=== PATIENT | male | born 1950 | race Caucasian/White ===

== ENCOUNTER → 2016-07-15 | Outpatient (CLI) | payer OTHER ==
[~2016-07-15] MED LIST: ACET-1311 PO; CIPR-255 PO; CLC100 PO; DTR5 PO; IBUP-1050 PO; OXYC7.5T62 PO
== END | disposition home or self-care (01) ==
LOC: C.PATHSPEC 17:54
PROVIDERS: ATTEND Urology
DX: R97.20 Elevated prostate specific antigen [PSA] (principal)

== ENCOUNTER → 2016-07-30 | Outpatient (CLI) | payer OTHER ==
--- NOTE | 2016-07-30 14:51 | DIAGNOSTIC IMAGING REPORT ---
BONE SCAN WHOLE BODY CLINICAL HISTORY: Prostate carcinoma COMPARISON STUDY: No previous studies for comparison. FINDINGS: The patient was injected with 25.1 mCi of technetium 99m MDP. Three-hour delayed whole body images were acquired. There are foci of increased activity within the lower lumbar spine and sacrum, a distribution most consistent with postsurgical change. There is a focus of increased activity within the left wrist at the level the first carpal metacarpal joint. This is likely arthritic. There are no foci of increased activity viewed as suspicious for skeletal metastasis. IMPRESSION: No bone scan evidence of skeletal metastasis Electronically signed by: Amado Lomas M.D. 07/30/2016 2:50 PM Dictated Date/Time: 07/30/2016 2:49 PM
== END | disposition home or self-care (01) ==
LOC: C.NUCL 10:54
PROVIDERS: ATTEND Urology
DX: C61 Malignant neoplasm of prostate (principal)

== ENCOUNTER 2017-01-07 08:00 | Inpatient (IN) | payer OTHER, MEDICARE ==
[2016-12-15 14:38] VITALS: BMI 28.0
--- NOTE | 2016-12-15 15:04 | PAT Medication Instructions ---
Service Date Dec 15, 2016. Current Home Medication List Acetaminophen (Tylenol), 650 MG PO Q4 PRN for Pain Ibuprofen (Advil), 400 MG PO Q6 PRN for Pain Medication Instructions For Your Scheduled Surgery - Check with surgeon for instructions Ibuprofen (Advil), 400 MG PO Q6 PRN for Pain - Take the following medications the morning of surgery with a sip of water: Acetaminophen (Tylenol), 650 MG PO Q4 PRN for Pain (if needed) - Take the following medications as scheduled the night before surgery: Acetaminophen (Tylenol), 650 MG PO Q4 PRN for Pain (if needed) If you have any questions please call us at [phone] or [phone] or [phone]
--- NOTE | 2016-12-15 15:50 | DIAGNOSTIC IMAGING REPORT ---
CHEST PREADMISSION(PA/LAT) CLINICAL HISTORY: PAT COMPARISON STUDY: No previous studies for comparison. FINDINGS: The bones soft tissues and hemidiaphragms are normal. The cardiomediastinal silhouette is normal. The lungs are clear. The pulmonary vasculature is normal. IMPRESSION: Negative chest. The above report was generated using voice recognition software. It may contain grammatical, syntax or spelling errors. Electronically signed by: Miguel Mcclure M.D. 12/15/2016 3:49 PM Dictated Date/Time: 12/15/2016 3:48 PM
[2016-12-15 16:03] LABS: BASO % 0.4 %; BASO ABS # 0.02 K/uL (0-0.2); COMPLETE YES; EOS % 1.2 %; HEMATOCRIT 42.1 % (42-52); IG% 0.2 %; LYMPH % 33.6 %; LYMPH ABS # 1.72 K/uL (1.2-3.4); MEAN CELL VOLUME 88.8 fL (80-100); MEAN CORPUSCULAR HEMOGLOBIN 31.9 pg (25-34); MEAN CORPUSCULAR HGB CONC 35.9 g/dl (32-36); MEAN PLATELET VOLUME 9.5 fL (7.4-10.4); MONO % 7.8 %; NEUT % 56.8 %; PLATELET COUNT 207 K/uL (130-400); RED BLOOD COUNT 4.74 M/uL (4.7-6.1); URINE APPEARANCE CLEAR (CLEAR); URINE BILIRUBIN NEG (NEG); URINE COLOR YELLOW; URINE NITRITE NEG (NEG); URINE SPECIFIC GRAVITY 1.025 (1.000-1.030); UROBILINOGEN NEG (NEG); WHITE BLOOD COUNT 5.12 K/uL (4.8-10.8)
[2016-12-15 16:04] LABS: BUN/CREATININE RATIO 17.4 (10-20); CALCIUM 8.8 mg/dl (8.5-10.1); CREATININE 1.2 mg/dl (0.60-1.40); POTASSIUM 3.9 mmol/L (3.5-5.1)
[2016-12-15 16:11] LABS: MANUAL MICROSCOPIC REQUIRED? NO; REVIEW REQ? NO
[~2017-01-07] VITALS: Ht 170.2 cm; Wt 82.9 kg
[2017-01-07] VITALS (10 sets, daily range): BP systolic 110–152; BP diastolic 56–102; PULSE 54–74; TEMP 36.4–37.1; O2SAT 93–98; Ht 170.2 cm; Wt 82.9 kg
[~2017-01-07 08:00] MED LIST changes: +ACETAMINOPHEN 1000 MG/100 ML IV IV SCH; +CEFAZOLIN IV SCH; -CIPR-255 PO; -CLC100 PO; +DEXTROSE IV SCH; -DTR5 PO; +HEPARIN SOD 5000 UNIT/0.5 ML CARP SQ SCH; +LACTATED RINGER'S 1000ML 1,000 ML IV SCH; -OXYC7.5T62 PO
[2017-01-07] MEDS ORDERED: ONDANSETRON INJ 2 MG/ML 2 ML VIAL IV PRN ×2 (08:45→13:45)
[2017-01-07] MEDS ORDERED: EpHEDrine SULFATE INJ 50 MG/ML AMP IV PRN (08:45)
[2017-01-07] MEDS ORDERED: ATROPINE SULFATE 0.1 MG/ML 5ML SYR IV PRN (08:45)
[2017-01-07] MEDS ORDERED: MoRPHine SULFATE 10 MG/ML CARP/VIAL IV PRN (08:45)
[2017-01-07] MEDS ORDERED: PROPOFOL IV EMULSION 10 MG/ML 20 ML VIAL IV ONE (09:19)
[2017-01-07] MEDS ORDERED: LIDOCAINE HCL 2% 2 ML VIAL (20MG/ML) ONE (09:19)
[2017-01-07] MEDS ORDERED: MIDAZOLAM HCL 1 MG/ML 2ML VIAL ONE (09:19)
[2017-01-07] MEDS ORDERED: DEXAMETHASONE SOD INJ 4 MG/ML VIAL ONE (09:19)
[2017-01-07] MEDS ORDERED: ROCURONIUM BROMIDE 10 MG/ML 5 ML VIAL ONE (09:19)
[2017-01-07] MEDS ORDERED: GLYCOPYRROLATE INJ 0.2 MG/ML VIAL ONE (09:19)
[2017-01-07] MEDS ORDERED: NEOSTIGMINE METHYLSULFATE 5 MG/5 ML SYR ONE (09:19)
[2017-01-07] MEDS ORDERED: FENTANYL CITRATE INJ 50 MCG/1 ML 2 ML VIAL ONE (09:19)
[2017-01-07] MEDS ORDERED: ONDANSETRON INJ 2 MG/ML 2 ML VIAL ONE ×2 (09:19→13:14)
--- NOTE | 2017-01-07 10:09 | History & Physical Bridge Note ---
H&P Re-Evaluation Bridge Note: I have examined the patient, reviewed the History & Physical and in the interval since the performance of the History & Physical I have noted the following changes of clinical significance: No changes noted
[2017-01-07] MEDS ORDERED: BUPIVACAINE 0.5 % 5 MG/1 ML MPF 30ML VIAL ONE (10:17)
[2017-01-07] MEDS ORDERED: METHYLENE BLUE 0.5% 10 ML VIAL ONE (10:17)
[2017-01-07] MEDS ORDERED: HYDROmorphone INJ 2 MG/ML SYR/VIAL ONE (11:09)
[2017-01-07] MEDS ORDERED: HydrALAZINE HCL 20 MG/ML VIAL ONE (11:34)
[2017-01-07] MEDS ORDERED: CEFAZOLIN SOD 1 GM VIAL ONE (11:38)
[2017-01-07] MEDS ORDERED: FLOSEAL HEMOSTATIC MATRIX 10ML TOP ONE (12:18)
[2017-01-07] MEDS ORDERED: SURGICEL ABSORB HEMOSTAT 2IN X 14IN TOP ONE (13:13)
[2017-01-07] MEDS ORDERED: OXYBUTYNIN CHLORIDE 5 MG TAB PO PRN (13:45)
[2017-01-07] MEDS ORDERED: HYDROmorphone INJ 1 MG/ML SYR IV PRN (13:45)
[2017-01-07] MEDS ORDERED: OXYCODONE/ACETAMINOPHEN 7.5-325 TAB PO PRN (13:45)
[2017-01-07] MEDS: FENTANYL CITRATE INJ 50 MCG/1 ML 2 ML VIAL IV PRN ×2 (13:48→13:58)
[2017-01-07 14:24] LABS: HEMATOCRIT 40.5 % (42-52); MEAN CELL VOLUME 90.2 fL (80-100); MEAN CORPUSCULAR HEMOGLOBIN 31.6 pg (25-34); MEAN PLATELET VOLUME 9.3 fL (7.4-10.4); PLATELET COUNT 197 K/uL (130-400); RED BLOOD COUNT 4.49 M/uL (4.7-6.1); WHITE BLOOD COUNT 10.23 K/uL (4.8-10.8)
--- NOTE | 2017-01-07 14:25 | Anesthesiology Progress Note ---
Anesthesia Post Op Note Date & Time Jan 07, 2017 at 14:25 Vital Signs Pain Intensity: 2 Vital Signs Past 12 Hours Date Time Temp Pulse Resp B/P (MAP) Pulse Ox O2 Delivery O2 Flow Rate FiO2 01/07/17 14:15 67 14 01/07/17 14:15 67 14 97 01/07/17 14:11 131/70 01/07/17 14:10 63 14 97 01/07/17 14:10 64 7 01/07/17 14:06 107/63 01/07/17 14:05 68 10 95 01/07/17 14:05 69 10 01/07/17 14:01 111/61 01/07/17 14:00 66 11 98 01/07/17 14:00 67 11 01/07/17 13:56 104/63 01/07/17 13:55 74 7 01/07/17 13:55 74 7 99 01/07/17 13:52 106/65 01/07/17 13:50 74 9 01/07/17 13:50 74 9 99 01/07/17 13:46 125/81 01/07/17 13:45 76 12 01/07/17 13:45 76 12 98 01/07/17 13:43 109/71 01/07/17 13:40 75 16 96 01/07/17 13:40 75 16 01/07/17 13:40 36.3 81 14 109/71 97 Mask 7 01/07/17 08:20 69 16 152/102 (119) 94 Room Air Notes Mental Status: alert / awake / arousable, participated in evaluation Pt Amnestic to Procedure: Yes Nausea / Vomiting: adequately controlled Pain: adequately controlled Airway Patency, RR, SpO2: stable & adequate BP & HR: stable & adequate Hydration State: stable & adequate Anesthetic Complications: no major complications apparent
[2017-01-07 14:43] LABS: BUN/CREATININE RATIO 10.8 (10-20); CALCIUM 8.4 mg/dl (8.5-10.1); CREATININE 1.2 mg/dl (0.60-1.40); POTASSIUM 3.8 mmol/L (3.5-5.1)
--- NOTE | 2017-01-07 14:46 | [facility] Post Operative Brief Note ---
Immediate Operative Summary Operative Date Jan 07, 2017. Pre-Operative Diagnosis cT1c Shannon 3+4 Prostate cancer Post-Operative Diagnosis Same Procedure(s) Performed Robotic Assisted Laparoscopic Radical Retropubic Prostatectomy, Bilateral Nerve Sparing Dissection with Insertion of Suprapubic Catheter Surgeon Dr Itzel Weathers Tenterer Surgeon(s) Mildred RITCHIE Estimated Blood Loss 100 ML Findings Watertight anastomosis, SPT in good location, excellent nerve sparing dissection on both sides. Specimens A. Diana-prostatic fat B. prostate and seminal vesicles Drains 18 fr avila 10 cc H2O, 16 Rutner SPT 5 cc H2O, #10 JAVAN to bulb suction Anesthesia GAET + local Complication(s) None Disposition Recovery Room / PACU
[2017-01-07 14:49] LABS: MEAN CORPUSCULAR HGB CONC 35.1 g/dl (32-36)
--- NOTE | 2017-01-07 14:57 | [facility] Operative Report ---
Operative Report Operative Date Jan 07, 2017. Pre-Operative Diagnosis cT1c [place] 3+4 Prostate cancer Post-Operative Diagnosis Same Procedure(s) Performed Robotic Assisted Laparoscopic Radical Retropubic Prostatectomy, Bilateral Nerve Sparing Dissection with Insertion of Suprapubic Catheter Surgeon Dr Itzel Weathers Truck Rental Clerk Surgeon(s) Mildred RITCHIE Estimated Blood Loss 100 ML Findings Watertight anastomosis, good SPT location, excellent nerve sparing dissection bilaterally Specimens A. Diana-prostatic fat B. prostate and seminal vesicles Drains 18 fr avila 10 cc H2O, 16 Rutner SPT 5 cc H2O, #10 JAVAN to bulb suction Anesthesia GAET + local Complication(s) None Disposition Recovery Room / PACU Indications 66-year-old male found to have Shannon 3+4 prostate cancer in a single core at the left apex after prostate biopsy for a PSA of 5.3. He has chosen robotically prostatectomy manage his disease. Subcutaneous heparin and SCDs were used for DVT prophylaxis and intravenous Ancef was provided for antibiotic coverage. Please see SCDs for further details. Patient wishes to have a suprapubic tube placed for bladder drainage after surgery. Due to his low volume disease and low risk PSA lymph node dissection was not planned. Description of Procedure Patient was properly identified and brought into the operative suite after identification of appropriate consent of the chart. General anesthesia with endotracheal intubation was initiated and patient was prepped and draped in the standard fashion for this procedure. Full timeout procedure was followed. All port sites were anesthetized prior to incision with local anesthesia. 12 mm supraumbilical port was made and abdomen was entered under direct visualization using a 0 laparoscope and a 12 mm visual obturator. Abdomen was surveyed and noted to have normal intra-abdominal anatomy with no significant variations. Ports were placed for a fourth arm robotic template including 2 left-sided 7 mm robotic ports, 1 right-sided 7 mm robotic port and a 5 and 12 mm assistant store manager operations port. Completion was placed in Trendelenburg and robot was brought in and docked. A 0 lens was used to drop the bladder down to the level of the pubic bone. Prostate was defatted and this was sent for pathologic analysis. Endopelvic fascia was sharply using cautery and blunt dissection was carried out to the level of the apex of the prostate. Dorsal venous complex was skeletonized and then controlled using an 0 Vicryl suture on a CT1 needle. Nerve sparing dissection was initiated at this time. 30 down lens was then placed and bladder neck was placed on traction using the fourth arm. Bladder neck was skeletonized down to the level of the Avila catheter and then divided. Avila catheter was used for anterior traction on the prostate gland. Posterior bladder neck was dropped and seminal vesicles and vas deferens were identified within the midline, circumscribed and divided. To assist with mobilization of the prostate the bladder and prostatic pedicles were skeletonized and divided after controlling them with Weck clips. Nerve sparing dissection was carried out to the level of the apex of the prostate on both sides. After the seminal vesicles were dissected free these were placed in the fourth arm for anterior traction. Denonvillier's fascia was divided sharply using cold scissors and the rectum was dropped in the midline up to the level of the apex of the prostate. Hemostasis obtained as necessary using judicious cautery. After this was complete the prostate was placed on traction Avila catheter was replaced via the urethra. Dorsal venous complex was divided and urethra was skeletonized. Apical dissection was completed and then the urethra was divided. Rectourethralis fibers were also divided in prostate was brought up into the abdomen were was placed within an Endo Catch bag for retrieval at the end of the case. Attention was turned to the pelvis were good hemostasis was appreciated and obtained as necessary. FloSeal tissue seal was placed within the confines of the pelvis for additional hemostasis. Prior to placing FloSeal, rectum was insufflated under saline irrigation noted to be free of injury. An excellent aperture to the bladder neck was noted. Using a double- armed V lock suture a circumferential running anastomosis was performed between the bladder neck and the urethra. Prior to completion of closure a silicone Avila catheter was visualized entering the bladder. Closure was completed and the anastomosis was tested with greater than 150 mL of sterile irrigant and noted to be watertight. The remainder of the FloSeal tissue seal was placed within the pelvis. A small suprapubic incision was made and a 16 [place] Rutner catheter was entered into the bladder under direct visualization with 5 mL of sterile water in the balloon and noted to be draining clear urine. Robotic fourth arm was removed and a #10 JAVAN drain was brought in via the fourth arm port. This was placed within the confines of the pelvis while avoiding placing it directly over the anastomosis. Robotic instruments were removed and the camera was brought in via the assistant store manager operations port. String to the Endo Catch bag was brought up through the supraumbilical incision which was then enlarged sufficiently to allow for easy passage of the specimen bag. Fascia at the level of the supraumbilical incision was closed using an 0 Vicryl on a UR 5 needle. Suprapubic tube and JAVAN drain were secured using 2-0 silk suture. Skin was closed at the remaining incisions using 4-0 Monocryl and Dermabond dressing. Excess carbon dioxide gas had been removed from the abdomen prior to completion of closure. JAAVN was placed to bulb suction and catheters to gravity drainage. Anesthesia was reversed patient's transient recovery room in stable condition. Patient will be admitted to the floor for standard postoperative management. I attest to the content of the Intraoperative Record and any orders documented therein. Any exceptions are noted below.
[2017-01-07] MEDS: KETOROLAC TROMETHAMINE 15 MG/ML VIAL IV PRN (15:21)
[2017-01-07] MEDS: LACTATED RINGER'S 1000ML 1,000 ML IV SCH ×2 (15:22→22:26)
[2017-01-07 15:48] LABS: PROTHROMBIN TIME (PATIENT) 10.8 SECONDS (9.0-12.0)
[2017-01-07] MEDS: CEFAZOLIN IV 2,000 MG in DEXTROSE 5% 50ML 50 ML IV SCH (17:45)
[2017-01-07] MEDS: ACETAMINOPHEN 500 MG TAB PO SCH ×2 (17:46→23:15)
[2017-01-07] MEDS: HEPARIN SOD 5000 UNIT/0.5 ML CARP SQ SCH (18:35)
[2017-01-07] MEDS: DOCUSATE SODIUM 100 MG CAP PO SCH (20:39)
[2017-01-08] MEDS: CEFAZOLIN IV 2,000 MG in DEXTROSE 5% 50ML 50 ML IV SCH ×2 (01:41→10:30)
[2017-01-08 03:34] VITALS: BP 113/62; PULSE 64; TEMP 36.9; O2SAT 94
[2017-01-08] MEDS: HEPARIN SOD 5000 UNIT/0.5 ML CARP SQ SCH (06:16)
[2017-01-08] MEDS: ACETAMINOPHEN 500 MG TAB PO SCH ×2 (06:17→12:43)
[2017-01-08 07:07] LABS: COMPLETE YES; HEMATOCRIT 39.4 % (42-52); IG% 0.2 %; LYMPH % 12.3 %; LYMPH ABS # 1.12 K/uL (1.2-3.4); MEAN CORPUSCULAR HEMOGLOBIN 31.6 pg (25-34); MEAN CORPUSCULAR HGB CONC 34.8 g/dl (32-36); MEAN PLATELET VOLUME 9.6 fL (7.4-10.4); MONO % 8.6 %; NEUT % 78.9 %; PLATELET COUNT 210 K/uL (130-400); RED BLOOD COUNT 4.33 M/uL (4.7-6.1); WHITE BLOOD COUNT 9.09 K/uL (4.8-10.8)
[2017-01-08 07:39] LABS: BUN/CREATININE RATIO 9.4 (10-20); CALCIUM 8.8 mg/dl (8.5-10.1); CREATININE 1.2 mg/dl (0.60-1.40); POTASSIUM 4.2 mmol/L (3.5-5.1)
[2017-01-08 07:52] VITALS: BP 126/68; PULSE 72; TEMP 36.8; O2SAT 94
[2017-01-08 07:54] VITALS: O2SAT 94
--- NOTE | 2017-01-08 08:13 | Progress Note ---
Subjective Date of Service: Jan 08, 2017. Subjective Pt evaluation today including: conversation w/ patient, conversation w/ family , physical exam, chart review, lab review, review of inpatient medication list Pain: Controlled with meds PO Intake: Ryan clears without emesis Voiding: avila catheter in place (and SPT draining) 66 yo male POD#1 s/p RALRP, BNS with SPT. Both are draining. He notes some dizziness with ambulation yesterday, much improved today. Appropriate incisional tenderness. Ryan clears, + appetite for more. No flatus yet, feeling overall well. in room, no new complaints. Labwork stable. Review of Systems Constitutional: No fever, No chills Eyes: No worsening of vision ENT: No hearing loss Respiratory: No sputum, No wheezing, No shortness of breath Abdomen: + pain, No nausea, No vomiting, No diarrhea Musculoskeletal: No joint pain Male : + see HPI Neurologic: No memory loss, No paralysis Psychiatric: No depression symptoms Endo: No fatigue Skin: No new/changing skin lesions, No color change Objective Vital Signs Date Time Temp Pulse Resp B/P (MAP) Pulse Ox O2 Delivery O2 Flow Rate FiO2 01/08/17 07:54 94 Room Air 01/08/17 07:52 36.8 72 18 126/68 (87) 94 Room Air 01/08/17 06:55 Room Air 01/08/17 03:34 36.9 64 16 113/62 (79) 94 Room Air 01/07/17 23:37 37.1 54 16 113/57 (75) 93 Room Air 01/07/17 19:49 37.1 74 18 110/56 (74) 97 Nasal Cannula 2.0 01/07/17 19:00 Nasal Cannula 2.0 01/07/17 17:35 36.5 66 16 120/72 (88) 98 Nasal Cannula 2.0 01/07/17 16:35 36.5 72 16 132/78 (96) 98 Nasal Cannula 2.0 01/07/17 15:35 36.5 72 16 120/74 (89) 98 Nasal Cannula 2.0 01/07/17 15:05 36.5 70 16 123/72 (89) 97 Nasal Cannula 2.0 01/07/17 14:39 98 Nasal Cannula 3.0 01/07/17 14:36 36.4 70 15 132/68 (89) 98 Nasal Cannula 3.0 01/07/17 14:35 98 Nasal Cannula 3.0 01/07/17 14:26 36.2 01/07/17 14:15 67 14 01/07/17 14:15 67 14 97 01/07/17 14:11 131/70 01/07/17 14:10 63 14 97 01/07/17 14:10 64 7 01/07/17 14:06 107/63 01/07/17 14:05 68 10 95 01/07/17 14:05 69 10 01/07/17 14:01 111/61 01/07/17 14:00 66 11 98 01/07/17 14:00 67 11 01/07/17 13:56 104/63 01/07/17 13:55 74 7 01/07/17 13:55 74 7 99 01/07/17 13:52 106/65 01/07/17 13:50 74 9 01/07/17 13:50 74 9 99 01/07/17 13:46 125/81 01/07/17 13:45 76 12 01/07/17 13:45 76 12 98 01/07/17 13:43 109/71 01/07/17 13:40 75 16 96 01/07/17 13:40 75 16 01/07/17 13:40 36.3 81 14 109/71 97 Mask 7 01/07/17 08:20 69 16 152/102 (119) 94 Room Air Physical Exam General Appearance: WD/WN, no apparent distress ENT: hearing grossly normal Neck: supple, no adenopathy Respiratory/Chest: no respiratory distress, no accessory muscle use Cardiovascular: no JVD Abdomen: soft, + pertinent finding (minimal appropriate tenderness, inc c/d/i, drains in place) Neurologic/Psychiatric: alert, oriented x 3 Skin: normal color Laboratory Results Last 24 Hours Test 01/07/17 13:55 01/07/17 15:28 01/08/17 06:39 White Blood Count 10.23 K/uL 9.09 K/uL Red Blood Count 4.49 M/uL 4.33 M/uL Hemoglobin 14.2 g/dL 13.7 g/dL Hematocrit 40.5 % 39.4 % Mean Corpuscular Volume 90.2 fL 91.0 fL Mean Corpuscular Hemoglobin 31.6 pg 31.6 pg Mean Corpuscular Hemoglobin Concent 35.1 g/dl 34.8 g/dl RDW Standard Deviation 44.9 fL 46.3 fL RDW Coefficient of Variation 13.6 % 13.9 % Platelet Count 197 K/uL 210 K/uL Mean Platelet Volume 9.3 fL 9.6 fL Sodium Level 141 mmol/L 141 mmol/L Potassium Level 3.8 mmol/L 4.2 mmol/L Chloride Level 110 mmol/L 108 mmol/L Carbon Dioxide Level 24 mmol/L 27 mmol/L Anion Gap 7.0 mmol/L 6.0 mmol/L Blood Urea Nitrogen 13 mg/dl 11 mg/dl Creatinine 1.20 mg/dl 1.20 mg/dl Est Creatinine Clear Calc Drug Dose 63.2 ml/min 63.2 ml/min Estimated GFR () 73.1 73.1 Estimated GFR (Non- 63.1 63.1 BUN/Creatinine Ratio 10.8 9.4 Random Glucose 153 mg/dl 108 mg/dl Calcium Level 8.4 mg/dl 8.8 mg/dl Prothrombin Time 10.8 SECONDS Prothromb Time International Ratio 1.0 Activated Partial Thromboplast Time 26.7 SECONDS Partial Thromboplastin Ratio 1.0 Hepatitis C Antibody Screen NEG Neutrophils (%) (Auto) 78.9 % Lymphocytes (%) (Auto) 12.3 % Monocytes (%) (Auto) 8.6 % Eosinophils (%) (Auto) 0.0 % Basophils (%) (Auto) 0.0 % Neutrophils # (Auto) 7.17 K/uL Lymphocytes # (Auto) 1.12 K/uL Monocytes # (Auto) 0.78 K/uL Eosinophils # (Auto) 0.00 K/uL Basophils # (Auto) 0.00 K/uL Immature Granulocyte % (Auto) 0.2 % Immature Granulocyte # (Auto) 0.02 K/uL Assessment and Plan A/P 66 yo male POD#1 s/p RALRP, BNS and SPT. Wishes to keep SPT, remove avila - care for drain reviewed, will DC avila now. Advance activity and diet today, ambulate in hallway with nursing. If tolerates diet and does well, DC JAVAN and DC home in afternoon. DC instructions reviewed, postop appointments confirmed. Discharge planning: home
--- NOTE | 2017-01-08 08:26 | Anesthesiology Progress Note ---
Anesthesia Post Op Note Date & Time Jan 08, 2017 at 08:26 Vital Signs Vital Signs Past 12 Hours Date Time Temp Pulse Resp B/P (MAP) Pulse Ox O2 Delivery O2 Flow Rate FiO2 01/08/17 07:54 94 Room Air 01/08/17 07:52 36.8 72 18 126/68 (87) 94 Room Air 01/08/17 06:55 Room Air 01/08/17 03:34 36.9 64 16 113/62 (79) 94 Room Air 01/07/17 23:37 37.1 54 16 113/57 (75) 93 Room Air Notes Mental Status: alert / awake / arousable, participated in evaluation Pt Amnestic to Procedure: Yes Nausea / Vomiting: adequately controlled Pain: adequately controlled Airway Patency, RR, SpO2: stable & adequate BP & HR: stable & adequate Hydration State: stable & adequate Anesthetic Complications: no major complications apparent
[2017-01-08] MEDS: LACTATED RINGER'S 1000ML 1,000 ML IV SCH (08:40)
[2017-01-08] MEDS: DOCUSATE SODIUM 100 MG CAP PO SCH (08:41)
[2017-01-08] MEDS: KETOROLAC TROMETHAMINE 15 MG/ML VIAL IV PRN (08:47)
[2017-01-08] MEDS ORDERED: DTR5 PO (09:14)
[2017-01-08] MEDS ORDERED: CLC100 PO (09:14)
[2017-01-08] MEDS ORDERED: CIPR-255 PO (09:14)
[2017-01-08] MEDS ORDERED: OXYC7.5T62 PO (09:14)
--- NOTE | 2017-01-08 09:16 | Discharge Instructions ---
Discharge Instructions Date of Service Jan 08, 2017. Admission Reason for Admission: Prostate Cancer Discharge Discharge Diagnosis / Problem: Prostate Cancer Discharge Goals Goal(s): Improve function, Improve disease control, Prevent Disease Progression Activity Recommendations Activity Limitations: per Instructions/Follow-up section . Instructions / Follow-Up Instructions / Follow-Up 1. Do not lift >15lbs x 6 weeks. 2. No heavy exercise x 6 weeks. You may engage in light activity such as walking and stairs as tolerated. 3. No sexual intercourse until cleared by Dr. Weathers or Dr. Minaya. 4. [address] drive x [address] while taking narcotics. 5. Finish all of the antibiotic you have been prescribed. 6. Immediately call our office at [phone] if your catheter is removed for any reason. 7. Follow-up as scheduled. Please call our office at [phone] if you need to reschedule for any reason. . Current Hospital Diet Hospital Diet(s): Regular Diet Discharge Diet Recommended Diet: Regular Diet Procedures Procedures Performed: Robotic Assisted Laparoscopic Radical Retropubic Prostatectomy, Bilateral Nerve Sparing Dissection with Insertion of Suprapubic Catheter Pending Studies Studies pending at discharge: no Medical Emergencies . Who to Call and When: Medical Emergencies: If at any time you feel your situation is an emergency, please call 911 immediately. . Non-Emergent Contact Non-Emergency issues call your: Primary Care Provider, Urologist Call Non-Emergent contact if: temperature is above 101.5 . . "Provider Documentation" section prepared by Moon Marshall. . VTE Core Measure Inpt VTE Proph given/why not?: Unfractionated heparin SQ, SCD's [place] Drug Monitoring Program Search Results: no issues identified
[2017-01-08 11:26] VITALS: BP 116/62; PULSE 66; TEMP 36.8; O2SAT 93
[2017-01-08 14:23] VITALS: BP 116/62; PULSE 66; TEMP 36.8; O2SAT 93
--- NOTE | 2017-01-20 17:15 | Discharge Summary ---
Discharge Summary Date of Service Jan 20, 2017. Discharge Summary Admission Date: Jan 07, 2017 at 13:42 Discharge Date: Jan 08, 2017 Discharge Disposition: Home Primary Diagnosis: Prostate cancer Procedures: RALRP, SPT placement Consultations: NA Pending Studies/Follow-Up: Path check at postop visit Discharge Instructions Last Recorded Wt (Kilograms): 82.900 Activity Recommendations: limitations as noted below (see DC instructions) Diet At Discharge: Regular Allergies: Coded Allergies: No Known Allergies (Unverified , 01/07/17) Home Health Services: none Special Care: Call your doctor if: * Temperature above 101 degrees * Pain not relieved by pain medicine ordered * There is increased drainage or redness from any incision * You have any unanswered questions or concerns. Avoid all tobacco products. If you need help to stop smoking, call [facility] FREE QUITLINE at . This is a free call. Admission Information Admission HPI: 66 yo male with prostate cancer for robotic prostatectomy and SPT placement. See H&P for further details. Admission Physical Exam: See H&P Hospital Course 66 yo male admitted after RALRP, uncomplicated. Please see OP note for further details. Diet and activity were rapidly advanced and patient was tolerating regular diet, ambulating and comfortable on oral medication. He was considered stable for DC at that time. See progress notes for further details. DC instructions: See DC instruction list. Postop visit confirmed. Contact us with difficulties such as f/c/n/v. Total time spent on discharge = This includes examination of the patient, discharge planning, medication reconciliation, and communication with other providers.
== END 2017-01-08 15:31 | disposition home or self-care (01) | DRG 707 ==
LOC: C.ACU 08:00 → C.MSN 13:42 → ENRESERV 14:04
PROVIDERS: ADMIT Urology; ATTEND Urology
PROC: 0VT04ZZ Resection of Prostate, Percutaneous Endoscopic Approach (ICD-10-PCS; principal; 2017-01-07 10:00)
PROC: 8E0W4CZ Robotic Assisted Procedure of Trunk Region, Percutaneous Endoscopic Approach (ICD-10-PCS; principal; 2017-01-07 10:00)
PROC: 0T9B00Z Drainage of Bladder with Drainage Device, Open Approach (ICD-10-PCS; principal; 2017-01-07 10:00)
DX: C61 Malignant neoplasm of prostate (principal); N13.8 Other obstructive and reflux uropathy; N40.1 Benign prostatic hyperplasia with lower urinary tract symptoms; Z87.891 Personal history of nicotine dependence; Z91.89 Other specified personal risk factors, not elsewhere classified; Z84.1 Family history of disorders of kidney and ureter; Z80.1 Family history of malignant neoplasm of trachea, bronchus and lung